=== PATIENT | female | born 1955 | race Caucasian/White ===

== ENCOUNTER 2016-12-03 14:42 | Emergency (ER) | payer OTHER ==
[2016-12-03 15:06] VITALS: BP 140/107; PULSE 83; RESP 18; TEMP 146.7; O2SAT 94
--- NOTE | 2016-12-03 15:41 | UCPHY ---
H & P Time Seen by Provider: 12/03/16 15:14 Patient Type: New HPI/ROS: This patient injured her left ankle in knee yesterday falling on ice. She explains that she slipped and inverted her left ankle and hyper flexed her knee while falling on top of it. She had immediate pain to both the ankle and the knee. The location of the pain is posteromedial. She describes initial severe pain and explains that today after taking Naprosyn the ankle pain is 6/10 laterally and the knee pain is 5/10 medially. The symptoms worsened with weight -bearing with no other exacerbating factors noted. ROS: No numbness or tingling except for baseline MS symptoms. No feeling of instability to the ankle or the knee. No other injuries were sustained. 5 point ROS is otherwise negative. Past Medical/Surgical History: MS Osteoarthritis of knees Physical Exam: Physical Exam Vital signs are normal. General: No acute distress HEENT: Atraumatic. Eyes: Pupils equal and react to light. Extraocular motions are intact. Lungs: No respiratory distress. Cardiac: Brisk capillary refill is intact throughout. Pulses are 2+ and symmetric in the affected extremity. Skin: No rash or pallor. Extremities: Atraumatic and normal except for left lower extremity Left lower extremity: Left knee is notable for medial tenderness at the MCL. Kenna's is negative for laxity. She has no anterior tenderness, lateral or posterior tenderness. Varus stress without increased pain or laxity in valgus stress with increased medial pain but no significant laxity. Left ankle exam: Lateral ecchymosis and swelling anterior and inferior to the lateral malleolus. No 5th metatarsal tenderness. Minimal laxity is noted on anterior drawer of the affected ankle. Neuro: Alert and oriented x3 with no sensorimotor deficits. Initial differential diagnosis: MCL sprain, ankle sprain, rule out knee fracture, ankle fracture Constitutional: Initial Vital Signs Temperature (C) 63.7 C H 12/03/16 15:03 Heart Rate 83 12/03/16 15:03 Respiratory Rate 18 12/03/16 15:03 Blood Pressure 140/107 H 12/03/16 15:03 O2 Sat (%) 94 12/03/16 15:03 O2 Delivery Mode Room Air Allergies/Adverse Reactions: No Known Allergies Allergy (Unverified 09/02/11 11:20) Home Medications: Medication Instructions Recorded DULoxetine [Cymbalta 60 MG (RX)] 60 mg PO DAILY 01/12/13 Interferon Beta-1A [Avonex] 30 mcg IM Q7D 01/12/13 Loratadine [Claritin 10 mg] 10 mg PO DAILY 01/12/13 Naproxen Sodium 440 mg PO BID PRN 01/17/13 Lisinopril [Zestril 5 mg (RX)] 5 mg PO BID 01/28/13 Md Reconciled 01/2801/28/13 Mometasone Furoate Nasal [Nasonex] 2 sprays EACHNARE DAILY PRN 01/28/13 Pharmacist Completed 01/28/13 01/28/13 Propylene Glycol [Systane Balance] 1 drop EACHEYE DAILY PRN 01/28/13 Hydrocodone/APAP 5/325 [[place] 1 - 2 tab PO Q4PRN PRN #20 tab 12/03/16 5/325 (*)] MDM/Departure - MDM Diagnostics: Knee x-ray: DJD without evidence of fracture by my interpretation Ankle x-ray: Soft tissue swelling laterally, no fracture by my interpretation Medications Given: Stirrup splint is applied by our tech. I counseled patient regarding ankle sprain and knee sprain. Referred her to [facility] orthotics clinic in [place] for a hinged knee brace for her MCL sprain. I gave her prescription for this. She will follow up with Dr. Gerardo-manpower development specialist manager whom she has seen before Discussion: Findings consistent with grade 1 or 2 MCL sprain and moderate severity ankle sprain. - Depart Disposition: Home, Routine, Self-Care Clinical Impression: Ankle sprain Qualifiers: Encounter type: initial encounter Involved ligament of ankle: unspecified ligament Laterality: left Qualified Code(s): S93.402A - Sprain of unspecified ligament of left ankle, initial encounter Sprain of medial collateral ligament of left knee Qualifiers: Encounter type: initial encounter Qualified Code(s): S83.412A - Sprain of medial collateral ligament of left knee, initial encounter Condition: Good Instructions: Ankle Sprain (ED), Knee Sprain (ED), Crutch Instructions (ED) Additional Instructions: Diagnoses: 1. Ankle sprain 2. Mcl sprain of left knee Plan: Ice 20 minutes at a time 3 times a day Ibuprofen 400 600 mg every 6 hours or naprosyn for pain and swelling until symptoms resolve. Tylenol in addition or Vicodin if needed. No driving, alcohol or come Vicodin. Splint until your symptoms resolve. When you can bear weights and walk without any significant pain, then start rehabilitation exercises. These rehab. exercises will include gentle stretches the 4 directions, "the alphabet", and manual resistance exercises in the 4 directions. Continue these exercises for the next several months revealed to rebuild your ankle strength. Go to the [facility] in [place] for your hinged knee brace today. If your ankle is not improving with the above plan or for worsening symptoms call orthopedic M.D. for followup appointment. Prescriptions: Hydrocodone/APAP 5/325 [[place] 5/325 (*)] 1 - 2 tab PO Q4PRN PRN #20 tab PRN Reason: Pain Referrals: VELMA ESCALANTE [Primary Care Provider] - As per Instructions Osvaldo Gerardo MD [Medical Doctor] - As per Instructions - PQRS PQRS Measurement: NA
== END 2016-12-03 15:55 | disposition home or self-care (01) ==
LOC: CED 14:42
DX: S93.402A Sprain of unspecified ligament of left ankle, initial encounter (principal); S83.412A Sprain of medial collateral ligament of left knee, initial encounter; M17.0 Bilateral primary osteoarthritis of knee; W00.0XXA Fall on same level due to ice and snow, initial encounter
CPT/HCPCS: 73564-PO; 73610-PO; 99203-PO; G0463-PO; L4350

== ENCOUNTER → 2016-12-12 | Outpatient (CLI) | payer OTHER | LOC: CIMAGING 09:54 | DX: Z12.31 Encounter for screening mammogram for malignant neoplasm of breast (principal); Z80.3 Family history of malignant neoplasm of breast | CPT/HCPCS: G0202 ==

== ENCOUNTER → 2017-06-26 | Outpatient (CLI) | payer OTHER | LOC: BMCIMAGING 12:15 | PROVIDERS: ATTEND Internal Medicine Rheumatology | DX: M25.552 Pain in left hip (principal); M16.12 Unilateral primary osteoarthritis, left hip ==

== ENCOUNTER → 2018-01-19 | Outpatient (CLI) | payer OTHER | LOC: CIMAGING 14:35 | PROVIDERS: ATTEND Family Medicine | DX: Z12.31 Encounter for screening mammogram for malignant neoplasm of breast (principal) ==

== ENCOUNTER → 2018-02-03 | Outpatient (CLI) | payer OTHER | LOC: CIMAGING 13:15 | PROVIDERS: ATTEND Family Medicine | DX: R92.8 Other abnormal and inconclusive findings on diagnostic imaging of breast (principal) ==

== ENCOUNTER → 2018-02-08 | Outpatient (CLI) | payer OTHER | LOC: FIMAGING 12:35 | PROVIDERS: ATTEND Orthopaedic Surgery | DX: Z01.818 Encounter for other preprocedural examination (principal); M17.11 Unilateral primary osteoarthritis, right knee; M25.461 Effusion, right knee; M71.21 Synovial cyst of popliteal space [Baker], right knee; M23.41 Loose body in knee, right knee ==

== ENCOUNTER 2018-02-26 05:40 | Observation (INO) | payer OTHER ==
[2018-02-26] MEDS ORDERED: FAMOTIDINE 20 MG TAB PO ONE (05:54)
[2018-02-26] MEDS ORDERED: ceFAZolin 2 GM/DEXTROSE 100 ML IV ONE (05:54)
[2018-02-26] MEDS ORDERED: DEXAMETHASONE 4 MG/ML VIAL IVP ONE (05:54)
[2018-02-26] MEDS ORDERED: ACETAMINOPHEN 325 MG TAB PO ONE (05:54)
[2018-02-26] MEDS ORDERED: LR 1,000 ML IV ONE (05:55)
[2018-02-26] MEDS ORDERED: LIDOCAINE 1% 2 ML INJ ID PRN (05:55)
[2018-02-26] MEDS ORDERED: TRANEXAMIC ACID 3,000 MG in NS (SYRINGE) 50 ML IRR ONE (06:00)
[2018-02-26] MEDS ORDERED: ROPIVACAINE 0.2% 80 MG, EPINEPHrine 0.2 MG, KETOROLAC TROMETHAMINE 30 MG in SYRINGE 0 ML IU ONE (06:00)
[2018-02-26] MEDS ORDERED: TRANEXAMIC ACID 3,000 MG/50 ML BAG IRR ONE (06:37)
--- NOTE | 2018-02-26 07:00 | PDHPUP ---
History & Physical Update H&P update statement: This history and physical update is based on an assessment of the patient which was completed after admission or registration (within 24 hours), but prior to the surgery/procedure. H&P update: H&P reviewed & patient examined, no change in patient's condition since H&P completed
[2018-02-26] MEDS ORDERED: LIDOCAINE 2% 100 MG/5 ML SYR ONE (07:14)
[2018-02-26] MEDS ORDERED: ROCURONIUM 100 MG/10 ML VIAL ONE (07:14)
[2018-02-26] MEDS ORDERED: PROPOFOL 200 MG/20 ML VIAL ONE (07:14)
[2018-02-26] MEDS ORDERED: fentaNYL 250 MCG/5 ML INJ ONE (07:14)
[2018-02-26] MEDS ORDERED: fentaNYL 100 MCG/2 ML INJ ONE ×2 (07:49→08:47)
[2018-02-26] MEDS ORDERED: hydrALAZINE 20 MG/ML VIAL ONE (08:00)
[2018-02-26] MEDS ORDERED: GLYCOPYRROLATE 0.2 MG/1 ML VIAL ONE ×2 (08:15)
[2018-02-26] MEDS ORDERED: NEOSTIGMINE METHYLSULFATE 10 MG/10 ML MDV ONE (08:15)
[2018-02-26] MEDS ORDERED: BUPIVACAINE 0.25% 30 ML SDV ONE (08:22)
[2018-02-26] MEDS ORDERED: ONDANSETRON 4 MG/2 ML VIAL IVP PRN ×2 (08:34→08:52)
[2018-02-26] MEDS ORDERED: METOCLOPRAMIDE 10 MG/2 ML VIAL IVP PRN (08:34)
[2018-02-26] MEDS ORDERED: CYCLOBENZAPRINE 10 MG TAB PO PRN (08:34)
[2018-02-26] MEDS ORDERED: PROMETHAZINE HCL 25 MG SUPPR PR PRN (08:34)
[2018-02-26] MEDS ORDERED: POLYETHYLENE GLYCOL 3350 17 GM PKT PO PRN (08:34)
[2018-02-26] MEDS ORDERED: PROMETHAZINE HCL 25 MG/ML INJ IVP PRN (08:34)
[2018-02-26] MEDS ORDERED: MAGNESIUM HYDROXIDE 30 ML UDCUP PO PRN (08:34)
[2018-02-26] MEDS ORDERED: DIPHENOXYLATE/ATROPINE LOMOTIL 1 TAB PO PRN (08:34)
[2018-02-26] MEDS ORDERED: ONDANSETRON DISINTEGRATING 4 MG TAB PO PRN (08:34)
[2018-02-26] MEDS ORDERED: TEMAZEPAM 15 MG CAP PO PRN (08:34)
[2018-02-26] MEDS ORDERED: diphenhydrAMINE 25 MG CAP PO PRN (08:34)
[2018-02-26] MEDS ORDERED: BISACODYL 10 MG SUPP PR PRN (08:34)
[2018-02-26] MEDS ORDERED: LACTULOSE 20 GM/30 ML UDCUP PO PRN (08:34)
--- NOTE | 2018-02-26 08:37 | POSTOPPROG ---
Post Op Note Date of Operation: 02/26/18 Surgeon: Yonny Ruby Product Management Manager: salome ruby Anesthesiologist: dr. neville Anesthesia: Spinal, Other (Specify) (adductor canal block) Pre-op Diagnosis: right knee OA Post-op Diagnosis: same Indication: right knee pain Procedure: R TKA robot assisted, computer matteo Findings: R knee OA Inf/Abcess present in the surg proc area at time of surgery?: No EBL: 50-100
--- NOTE | 2018-02-26 08:51 | PDANEPAE ---
ANE Past Medical History - Cardiovascular History Hx Hypertension: No Hx Arrhythmias: No Hx Chest Pain: No Hx Coronary Artery / Peripheral Vascular Disease: No Hx CHF / Valvular Disease: No Hx Palpitations: No - Pulmonary History Hx COPD: No Hx Asthma/Reactive Airway Disease: No Hx Recent Upper Respiratory Infection: No Hx Oxygen in Use at Home: No Hx Sleep Apnea: No Sleep Apnea Screening Result - Last Documented: Negative - Neurologic History Hx Cerebrovascular Accident: No Hx Seizures: No Hx Dementia: No Neurologic History Comment: MS - Endocrine History Hx Diabetes: No - Renal History Hx Renal Disorders: No - Liver History Hx Hepatic Disorders: No - Neurological & Psychiatric Hx Hx Neurological and Psychiatric Disorders: Yes Neurological / Psychiatric History Comment: depression possibly r/t medications - Cancer History Hx Cancer: No - Congenital Disorder History Hx Congenital Disorders: No - Other Health History Other Health History: wears glasses - Chronic Pain History Chronic Pain: Yes (right knee, pain r/t ms) - Surgical History Prior Surgeries: 03/17/17 left TKA- at [facility] with Akin. 12/2012 right hip scope with katty. right JANY. 4th and 5th metatarsal repairs 3 years ago d/t fall ANE Review of Systems Review of Systems: - Exercise capacity METS (RN): 4 METS ANE Patient History - Allergies Allergies/Adverse Reactions: No Known Allergies Allergy (Verified 02/18/18 11:50) - Home Medications Home Medications: DULoxetine [Cymbalta 60 MG (RX)] 60 mg PO BID 01/12/13 [Last Taken 02/25/18 05: 00] Interferon Beta-1A [Avonex] 30 mcg IM WE 01/12/13 [Last Taken 02/21/18] Loratadine [Claritin 10 mg] 10 mg PO DAILY 01/12/13 [Last Taken 02/25/18] Cholecalciferol Vit D3 [Vitamin D3 2000 units tab (OTC)] 8,000 units PO DAILY [Last Taken 02/12/18] Lisinopril [Zestril 20 mg (*)] 20 mg PO DAILY 02/15/18 [Last Taken 02/25/18 07: 00] Pregabalin [Lyrica 100mg (*)] 100 mg PO BID 02/15/18 [Last Taken 02/26/18 05:00] - NPO status NPO Since - Liquids (Date): 02/26/18 NPO Since - Liquids (Time): 03:00 NPO Since - Solids (Date): 02/25/18 NPO Since - Solids (Time): 20:00 - Smoking Hx Smoking Status: Former smoker - Family Anes Hx Family Hx Anesthesia Complications: none ANE Labs/Vital Signs - Vital Signs Blood Pressure: 160/90 Heart Rate: 81 Respiratory Rate: 16 O2 Sat (%): 95 Height: 165.1 cm Weight: 97.522 kg ANE Physical Exam - Airway Neck exam: FROM Mallampati Score: Class 3 Mouth exam: normal dental/mouth exam - Pulmonary Pulmonary: no respiratory distress - Cardiovascular Cardiovascular: regular rate and rhythym - ASA Status ASA Status: III ANE Anesthesia Plan Anesthesia Plan: general endotracheal anesthesia Regional Anesthesia: single shot NB Urgent/Emergent Case: Luis vogel completed preop but documented later for safe timely pt care
[2018-02-26] MEDS ORDERED: ALBUTEROL 3 ML DEYVIAL IH PRN (08:52)
[2018-02-26] MEDS ORDERED: NALOXONE HCL 0.4 MG/ML INJ IVP PRN (08:52)
--- NOTE | 2018-02-26 08:52 | POSTANESTH ---
Post Anesthetic Evaluation Cardiovascular Status: Similar to Pre-Op Cond Respiratory Status: Similar to Pre-op Cond. Level of Consciousness/Mental Status: Alert and Oriented Pain Control: Adequate, Prn Tx Ordered Nausea/Vomiting Control: Adequate, Prn Tx Ordered Complications Possibly Related to Anesthesia: None Noted
[2018-02-26] MEDS ORDERED: LR 1,000 ML IV SCH (09:00)
[2018-02-26] MEDS: fentaNYL 100 MCG/2 ML INJ IVP PRN ×2 (09:29→09:48)
[2018-02-26] MEDS: oxyCODONE IR 5 MG TAB PO PRN ×6 (10:37→23:21)
[2018-02-26] MEDS: CETIRIZINE 10 MG TAB PO SCH (10:40)
[2018-02-26] MEDS: SENNOSIDES/DOCUSATE SODIUM TAB PO SCH ×2 (10:40→20:05)
[2018-02-26] MEDS: ACETAMINOPHEN 325 MG TAB PO SCH ×3 (12:27→23:21)
[2018-02-26] MEDS: ceFAZolin 2 GM/DEXTROSE 100 ML IV SCH ×2 (14:38→23:21)
--- NOTE | 2018-02-26 17:48 | GOP ---
[f rep st] OPERATIVE REPORT DATE OF OPERATION: 02/26/2018 SURGEON: Ed Pineda MD FINANCIAL SALES CONSULTANT: EMILY Toscano ANESTHESIA: Spinal. PREOPERATIVE DIAGNOSIS: Right knee osteoarthritis. POSTOPERATIVE DIAGNOSIS: Right knee osteoarthritis. PROCEDURE PERFORMED: Right total knee arthroplasty with computer navigation, robotic assist. FINDINGS: Severe lateral and patellofemoral osteoarthritis. ESTIMATED BLOOD LOSS: 30 cc. INDICATIONS: The patient is a 62-year-old female with severe and progressive pain and deformity of t he right knee unresponsive to conservative care. The risks and benefits of surgical intervention wer e explained in detail. DESCRIPTION OF PROCEDURE: The patient was brought to the operative room and placed on the table in t he supine position. Spinal anesthesia was induced without difficulty. A pneumatic tourniquet was appl ied about the right proximal thigh, and the leg was prepped and draped in a sterile fashion. The leg mosqueda was applied. After exsanguination by elevation the tourniquet was inflated to 250 mmHg. Incision was made anterior medial from the tibial tuberosity to a point 2 cm proximal to the superior pole of the patella. Medial parapatellar arthrotomy was carried out from the superior pole of the pa tella and posteriorly in line with the fibers of the Type II VMO. The medial collateral ligament was elevated and the infrapatellar fat pad was resected. The patella was everted and the articular surface was excised. A 32 mm patellar button was placed. Attention was turned first to the distal aspect of the femur. After exposure of the femur, 2 half pi ns were placed for fixation of the femoral array. In a similar fashion, 2 pins were placed anteromed ial on the tibia for fixation of the tibial array. External land marking and registration of the hip center was performed without difficulty. Internal femoral and tibial registration was carried out w ithout difficulty and the femoral and tibial checkpoints were placed and verified for accuracy. Attention was turned to the femur. The foot print for the size 3 femoral component was cut with the saw using the [employer] robotic system and verified for accuracy against the CT based plan. In a similar f ashion, the saw was used to cut the footprint for the size 3 tibial component using the [employer] system an d verified for accuracy against the CT based plan. The tibial articular surface was excised without d ifficulty, followed by the intercondylar box cut. The knee was extended and the remnants of the medial and lateral meniscus were excised. The posterior capsule was injected with ropivacaine, epinephrine and Toradol. A size 3 tibial tray was positioned . Trial reduction was then carried out. There was excellent range of motion, alignment, and stability using the 3 x 9 mm polyethylene. All trials were then removed. The joint was thoroughly irrigated and carefully dried. The press-fit c omponents were implanted. The permanent 3 x 9 mm polyethylene was placed without difficulty. The tourniquet was deflated and all bleeders were coagulated. The wound was thoroughly irrigated and closed using interrupted sutures of 2-0 Vicryl for the joint capsule. The subcu was closed with 3-0 V icryl and the skin with 4-0 Monocryl. Dermabond and Steri-Strips were applied followed by a compress zaire dressing. The patient was then moved from the operating room to the recovery room in good conditi on, having tolerated the procedure well. /[id number]/MODL
[2018-02-26] MEDS: FAMOTIDINE 20 MG TAB PO SCH (20:05)
[2018-02-26] MEDS: ASPIRIN 81 MG CHEWABLE TAB PO SCH (20:05)
[2018-02-27] MEDS: oxyCODONE IR 5 MG TAB PO PRN ×3 (03:55→11:41)
[2018-02-27] MEDS: ACETAMINOPHEN 325 MG TAB PO SCH ×2 (05:47→11:41)
[2018-02-27 07:55] VITALS: BP 127/77
[2018-02-27] MEDS: FAMOTIDINE 20 MG TAB PO SCH (08:35)
[2018-02-27] MEDS: CETIRIZINE 10 MG TAB PO SCH (08:36)
[2018-02-27] MEDS: ASPIRIN 81 MG CHEWABLE TAB PO SCH (08:36)
[2018-02-27] MEDS: SENNOSIDES/DOCUSATE SODIUM TAB PO SCH (08:37)
[2018-02-27] MEDS ORDERED: LISINOPRIL 20 MG TAB PO SCH (09:00)
[2018-02-27] MEDS ORDERED: PREGABALIN 100 MG CAP PO SCH (09:00)
[2018-02-27] MEDS ORDERED: DULoxetine 60 MG CAP PO SCH (09:00)
--- NOTE | 2018-02-27 11:08 | SOAPPROG ---
SOAP Progress Note Assessment/Plan: Assessment: Patient is doing well POD 1 s/p R TKA pain management: pain is well controlled on oral pain meds VTE ppx: recommend ASA 81 mg BID for 4 weeks anemia: level is stable and expected postoperative D/c planning: d/c to home today pending release from PT Plan: 02/27/18 11:06 Subjective: Rise is doing well, denies SOB, chest pain and NV. Objective: Vital Signs Temp Pulse Resp BP Pulse Ox 36.4 C 90 16 127/77 H 93 02/27/18 07:51 02/27/18 07:51 02/27/18 07:51 02/27/18 07:51 02/27/18 07:51 Laboratory Results 02/27/18 04:25 02/26/18 02/27/18 02/28/18 05:59 05:59 05:59 Intake Total 1455 Output Total 1925 500 Balance -470 -500 RLE: incision dressing is clean and dry, NVI, +pf/df ICD10 Worksheet Patient Problems: Problems Problem Status Onset Primary localized osteoarthritis of right knee Acute
--- NOTE | 2018-03-11 13:37 | GDS ---
[f rep st] DISCHARGE SUMMARY ADMISSION DIAGNOSIS: Right knee osteoarthritis. DISCHARGE DIAGNOSIS: Right knee osteoarthritis. PROCEDURE: Right total knee arthroplasty. VTE PROPHYLAXIS: Recommend aspirin 81 mg twice daily for 4 weeks. BRIEF DESCRIPTION OF HOSPITAL STAY: Patient was admitted for an elective joint arthroplasty. The pa tient tolerated the procedure well and has passed physical therapy. The patient was given appropriat e antibiotic prophylaxis and venous thromboembolism prophylaxis. The patient's pain was well control led on oral pain medication, patient was holding down food, and had urinated. Decision was made to d ischarge the patient. The patient was given post-operative prescriptions pre-operatively. PLAN: To follow up as scheduled with Dr. Pineda at [facility] March 18, at 9: 30. /[id number]/MODL
== END 2018-02-27 12:20 | disposition home or self-care (01) ==
LOC: FSGY 05:40 → EDSTATUS 07:15 → F3N 08:34
PROVIDERS: ADMIT Orthopaedic Surgery; ATTEND Orthopaedic Surgery
PROC: 8E0Y0CZ Robotic Assisted Procedure of Lower Extremity, Open Approach (ICD-10-PCS; principal; 2018-02-26 07:15)
PROC: 0SRC0JZ Replacement of Right Knee Joint with Synthetic Substitute, Open Approach (ICD-10-PCS; principal; 2018-02-26 07:15)
DX: M17.11 Unilateral primary osteoarthritis, right knee (principal)
CPT/HCPCS: 97116-GP; 97161-GP; G0378; J0171; J0360; J0690; J1100; J1885; J2001; J2270; J2704; J2795; J3010

== ENCOUNTER → 2018-10-21 | Outpatient (CLI) | payer OTHER | LOC: FCPNEURO 20:00 | PROVIDERS: ATTEND Student in an Organized Health Care Education/Training Program | DX: G47.33 Obstructive sleep apnea (adult) (pediatric) (principal) ==

== ENCOUNTER → 2018-12-08 | Outpatient (CLI) | payer OTHER | LOC: GIMAGING 11:36 → EDSTATUS 16:09 | PROVIDERS: ATTEND Family Medicine | DX: M20.11 Hallux valgus (acquired), right foot (principal); M19.071 Primary osteoarthritis, right ankle and foot; M77.31 Calcaneal spur, right foot | CPT/HCPCS: 73630-PO ==

== ENCOUNTER → 2019-01-20 | Outpatient (CLI) | payer OTHER | LOC: CIMAGING 07:09 | PROVIDERS: ATTEND Family Medicine | DX: Z12.31 Encounter for screening mammogram for malignant neoplasm of breast (principal); Z80.3 Family history of malignant neoplasm of breast ==